=== PATIENT | female | born 1945 | race Caucasian/White ===

== ENCOUNTER 2023-11-24 13:26 | Emergency (ER) | payer MEDICARE, BC ==
[2023-11-24] MEDS ORDERED: Sodium Chloride 0.9% 10 ML Syringe FLUSH PRN (13:49)
[2023-11-24] MEDS: Iopamidol 612 MG/ML 100 ML Bottle IVPUSH ONE (13:55)
[2023-11-24 14:01] LABS: BASOPHILS ABSOLUTE AUTO 0.1 K/mm3 (0.0-0.2); BASOPHILS PERCENT AUTO 0.6 % (0.0-1.0); EOSINOPHILS ABSOLUTE AUTO 0.1 K/mm3 (0.0-0.4); EOSINOPHILS PERCENT AUTO 0.8 % (0.0-6.0); HEMATOCRIT 38.9 % (37.0-47.0); HEMOGLOBIN 13.7 gm/dl (12.0-16.0); IMMATURE GRAN ABSOLUTE AUTO 0.15 K/mm3 (0.00-0.05); LYMPHOCYTES ABSOLUTE AUTO 1.1 K/mm3 (1.0-4.8); LYMPHOCYTES PERCENT AUTO 7.3 % (24.0-44.0); MEAN CORPUSCULAR HGB CONC 35.2 g/dl (32.0-36.0); MEAN PLATELET VOLUME 9.4 fl (9.4-12.3); MONOCYTES ABSOLUTE AUTO 0.8 K/mm3 (0.0-0.8); MONOCYTES PERCENT AUTO 5.7 % (0.0-8.0); NEUTROPHILS ABSOLUTE AUTO 12.2 K/mm3 (1.8-7.7); NEUTROPHILS PERCENT AUTO 84.6 % (41.0-71.0); PLATELET COUNT,PLT 276 K/mm3 (150-400); RED BLOOD CELL COUNT 4.42 M/mm3 (4.10-5.30); WHITE BLOOD CELL COUNT,WBC 14.44 K/mm3 (3.9-11.3)
[2023-11-24 14:06] LABS: INR 1.01; PROTHROMBIN TIME 10.7 SECONDS (9.7-12.0)
[2023-11-24 14:07] LABS: PTT,PARTIAL THROMBOPLSTIN TIME 20.7 SECONDS (21.7-31.4)
[2023-11-24 14:18] LABS: A/G RATIO 1.5 (1-2); ALBUMIN 4.5 g/dl (3.4-5.0); BILIRUBIN TOTAL 2.2 mg/dL (0.2-1.0); BUN/CREATININE RATIO 17.7 (14-18); CALCIUM 10.3 mg/dL (8.5-10.1); CREATININE 1.3 mg/dL (0.55-1.02); EST CRCL DRUG DOSING (CG) 31.57 mL/min; PROTEIN TOTAL,TP 7.6 g/dl (6.4-8.2)
[2023-11-24] MEDS: Ondansetron 4 MG/2 ML SDV IVPUSH ONE (14:22)
[2023-11-24] MEDS: HYDROmorphone 0.5 MG/0.5 ML Syringe IVPUSH ONE (14:22)
[2023-11-24] MEDS: Sodium Chloride 0.9% 10 ML Syringe FLUSH PRN (14:23)
[2023-11-24] MEDS: Sodium Chloride 0.9% 1,000 ML IV SCH (14:23)
[2023-11-24] MEDS: Sodium Chloride 0.9% 100 ML IV SCH (14:23)
[2023-11-24] MEDS: Iopamidol 755 Mg/ML 100 ML Bottle IVPUSH ONE (14:23)
[2023-11-24 16:17] LABS: APPEARANCE,URINE CLEAR (Clear); BILIRUBIN,URINE NEGATIVE (Negative); COLOR,URINE YELLOW (Yellow); GLUCOSE,URINE TRACE (Negative); KETONES,URINE NEGATIVE (Negative); LEUKOCYTE ESTERASE,URINE NEGATIVE (Negative); NITRITE,URINE NEGATIVE (Negative); OCCULT BLOOD,URINE TRACE-INTACT (Negative); PROTEIN,URINE 1+ (Negative)
[2023-11-24 16:27] LABS: BACTERIA,URINE FEW /hpf (FEW); WBC,URINE 0-5 /hpf (0-5)
[2023-11-24 16:28] LABS: MUCUS,URINE FEW /hpf (FEW)
== END 2023-11-24 17:57 | disposition home or self-care (01) ==
LOC: JD.ED 13:26
DX: K82.8 Other specified diseases of gallbladder (principal); R74.01 Elevation of levels of liver transaminase levels; R10.10 Upper abdominal pain, unspecified
CPT/HCPCS: 36415; 71275; 72191; 74175; 76705; 80053; 81001; 83690; 83880; 84484; 85025; 85610; 85730; 93005; 96361; 96374; 96375; 99285; J1170; J2405; J3490; J7030; Q9967; 93010; 99284